=== PATIENT | female | born 1955 | race African-American/Black ===

== ENCOUNTER 2016-06-26 12:36 | Emergency (ER) | payer OTHER ==
[~2016-06-26] VITALS: Ht 185.4 cm; Wt 127.0 kg
[~2016-06-26 12:36] MED LIST: AMLO10TA80 PO; FLUT1DIS5 IH; FOLI1CAP6 PO; FURO40TA5 PO; Hydralazine Hcl PO; MONT4TAB8 PO; OMEP40CA34 PO; ONDA4TAB5 PO; TRAM50TA3 PO
[2016-06-26] MEDS ORDERED: ALBUTEROL (0.083%) 2.5MG/3ML NEB HHN STA (13:22)
[2016-06-26 14:12] LABS: BASOPHILS % 0.2 % (0.0-2.0); EOSINOPHILS % 1.3 % (0.0-5.0); HEMATOCRIT. 39.6 % (36.0-48.0); HEMOGLOBIN. 12.7 g/dL (12.0-16.0); LYMPHOCYTES % 20.8 % (20.0-50.0); MEAN CORPUSCULAR HEMOGLOBIN 27.8 pg (28.0-32.0); MEAN CORPUSCULAR HGB CONC 32.1 g/dL (31.0-37.0); MEAN CORPUSCULAR VOLUME 86.6 fL (81.0-99.0); MEAN PLATELET VOLUME 7.4 fl (7.4-10.4); MONOCYTES % 7.7 % (2.0-8.0); PLATELET 388 x1000/uL (130-400); RED BLOOD CELL COUNT 4.58 mill/uL (4.2-5.4); RED CELL DISTRIBUTION WIDTH 17.3 % (11.6-14.6); WHITE BLOOD COUNT 12.6 x1000/uL (4.5-11.0)
[2016-06-26 14:18] LABS: PROTHROMBIN TIME 10.2 sec
[2016-06-26 14:24] LABS: ANION GAP 10; CALCIUM 8.7 mg/dL (8.5-10.1); CARBON DIOXIDE 29 mEq/L (21-32); CHLORIDE 108 mEq/L (98-107); INDEX HEMOLYSI 1 (1-3); INDEX ICTERIC 1 (1-4); INDEX LIPEMIC 1 (1-3); UREA NITROGEN BLOOD 18 mg/dL (7-21)
[2016-06-26 14:27] LABS: NT PRO B-TYPE NATRIURETIC PEP 27 pg/mL (5-125); TROPONIN I < 0.02 ng/mL (0.00-0.04); eGFR 43 mL/min (>60)
[2016-06-26 15:00] LABS: *AMPHETAMINES SCREEN URINE NEGATIVE (NEGATIVE); *BARBITURATES SCREEN URINE NEGATIVE (NEGATIVE); *BENZODIAZEPINES SCREEN URINE NEGATIVE (NEGATIVE); *COCAINE SCREEN URINE NEGATIVE (NEGATIVE); CANNABINOID URINE SCREEN NEGATIVE (NEGATIVE); ECSTASY MDMA SCREEN URINE NEGATIVE (NEGATIVE); METHADONE URINE SCREEN NEGATIVE (NEGATIVE); OPIATES URINE SCREEN NEGATIVE (NEGATIVE); PHENCYCLIDINE URINE SCREEN NEGATIVE (NEGATIVE)
[2016-06-26 15:09] VITALS: BP 129/76
[2016-06-26] MEDS ORDERED: KETOROLAC 30MG/ML VIAL IV ONE (15:15)
== END 2016-06-26 15:18 | disposition home or self-care (01) ==
LOC: ER 14:34
DX: R09.1 Pleurisy (principal); J45.909 Unspecified asthma, uncomplicated; J44.9 Chronic obstructive pulmonary disease, unspecified; I10 Essential (primary) hypertension; I25.2 Old myocardial infarction; Z90.49 Acquired absence of other specified parts of digestive tract; Z79.899 Other long term (current) drug therapy; Z88.8 Allergy status to other drugs, medicaments and biological substances
CPT/HCPCS: 36415; 71010; 80048; 80305; 83880; 84484; 85025; 85610; 93005; 94640; 96374; 99285; J1885; J7611; Z7610

== ENCOUNTER 2016-09-08 12:32 | Inpatient (IN) | payer OTHER ==
[~2016-09-08] VITALS: Ht 185.4 cm; Wt 131.5 kg
[2016-09-08] MEDS ORDERED: FUROSEMIDE 40MG/4ML VIAL IV ONE (13:45)
[2016-09-08] MEDS ORDERED: ASPIRIN 81MG TABLET PO ONE (13:45)
[2016-09-08] MEDS ORDERED: NITROGLYCERIN OINT 1GM/INCH UDPKT TD ONE (13:45)
[2016-09-08 13:58] LABS: BASOPHILS % 0.2 % (0.0-2.0); HEMATOCRIT. 40.9 % (36.0-48.0); HEMOGLOBIN. 13.4 g/dL (12.0-16.0); LYMPHOCYTES % 17.2 % (20.0-50.0); MEAN CORPUSCULAR HEMOGLOBIN 28.7 pg (28.0-32.0); MEAN CORPUSCULAR VOLUME 87.5 fL (81.0-99.0); MEAN PLATELET VOLUME 8.2 fl (7.4-10.4); MONOCYTES % 6.7 % (2.0-8.0); NEUTROPHILS % 72.9 % (40.0-76.0); PLATELET 345 x1000/uL (130-400); RED BLOOD CELL COUNT 4.68 mill/uL (4.2-5.4); RED CELL DISTRIBUTION WIDTH 17.3 % (11.6-14.6)
[2016-09-08 14:13] LABS: CARBON DIOXIDE 30 mEq/L (21-32); CHLORIDE 106 mEq/L (98-107); TROPONIN I < 0.02 ng/mL (0.00-0.04)
[2016-09-08 14:25] LABS: D-DIMER 0.82 mg/L FEU (<0.50); PROTHROMBIN TIME 10.4 sec
[2016-09-08 20:00] VITALS: BP 149/95
[2016-09-08] MEDS: ALBUTEROL (0.083%) 2.5MG/3ML NEB HHN PRN (21:34)
[2016-09-08] MEDS ORDERED: HYDROMORPHONE HCL/PF 2MG/ML CPJ IV PRN (21:45)
[2016-09-08] MEDS ORDERED: HYDROCODONE/ACETAMINOPHEN 5/325MG TABLET PO PRN (21:45)
[2016-09-08] MEDS ORDERED: ZOLPIDEM TARTRATE 5MG TABLET PO PRN (21:45)
[2016-09-08] MEDS: METHYLPREDNISOLONE SOD SUCC 125 MG/2 ML VIAL IV SCH (22:45)
[2016-09-08 23:02] VITALS: BP 145/95
[2016-09-08] MEDS ORDERED: TRAMADOL 50MG TABLET PO PRN (23:30)
[2016-09-08] MEDS ORDERED: PROMETHAZINE/DEXTROMETHORPHAN 6.25-15MG/5ML BOTTLE 120ML PO SCH (23:30)
[2016-09-08] MEDS ORDERED: CLONIDINE 0.2MG TABLET PO PRN (23:30)
[2016-09-08] MEDS ORDERED: CLON0.2T PO (23:37)
[2016-09-08] MEDS ORDERED: HYDR-4133 PO (23:37)
[2016-09-08] MEDS ORDERED: ALBU18HF2 IH (23:37)
[2016-09-08] MEDS ORDERED: MONT10TA24 PO (23:37)
[2016-09-08] MEDS ORDERED: D-ME118S13 PO (23:37)
[2016-09-08] MEDS ORDERED: PRED10TA23 PO (23:37)
[2016-09-08] MEDS ORDERED: AMLO10TA80 PO (23:37)
[2016-09-08] MEDS ORDERED: NITR4.1S2 TL (23:37)
[2016-09-08] MEDS ORDERED: TRAM50TA3 PO (23:37)
[2016-09-08] MEDS ORDERED: BENZ100C86 PO (23:37)
[2016-09-08] MEDS ORDERED: METO25TA6 PO (23:37)
[2016-09-08] MEDS ORDERED: MOME13HF INH (23:37)
[2016-09-09] VITALS: BP 127/88
[2016-09-09] MEDS: ALBUTEROL (0.083%) 2.5MG/3ML NEB HHN PRN ×6 (00:30→21:07)
[2016-09-09] MEDS ORDERED: CODE118S2 PO (01:22)
[2016-09-09] MEDS ORDERED: CODEINE PO PRN (01:30)
[2016-09-09] MEDS ORDERED: ZOLPIDEM TARTRATE 5MG TABLET PO PRN (01:30)
[2016-09-09] MEDS ORDERED: PROMETHAZINE HCL PO PRN (01:30)
[2016-09-09] MEDS ORDERED: NON FORMULARY PATIENT HOME MED EA XX SCH (01:45)
[2016-09-09] MEDS ORDERED: PROMETHAZINE 5 ML/6.25 MG 118ML LIQ PO PRN (02:00)
[2016-09-09 04:00] VITALS: BP 130/85
[2016-09-09 06:35] LABS: BASOPHILS % 0.2 % (0.0-2.0); HEMATOCRIT. 40.1 % (36.0-48.0); HEMOGLOBIN. 13.3 g/dL (12.0-16.0); LYMPHOCYTES % 9.9 % (20.0-50.0); MEAN CORPUSCULAR HEMOGLOBIN 29.1 pg (28.0-32.0); MEAN CORPUSCULAR VOLUME 87.8 fL (81.0-99.0); MEAN PLATELET VOLUME 7.7 fl (7.4-10.4); MONOCYTES % 0.7 % (2.0-8.0); NEUTROPHILS % 89.2 % (40.0-76.0); PLATELET 343 x1000/uL (130-400); RED BLOOD CELL COUNT 4.56 mill/uL (4.2-5.4); RED CELL DISTRIBUTION WIDTH 17.3 % (11.6-14.6)
[2016-09-09] MEDS: OMEPRAZOLE 20MG CAPSULE EXTENDED RELEASE PO SCH (06:36)
[2016-09-09 07:01] LABS: CHLORIDE 103 mEq/L (98-107)
[2016-09-09 07:09] LABS: CARBON DIOXIDE 27 mEq/L (21-32); TROPONIN I < 0.02 ng/mL (0.00-0.04)
[2016-09-09 08:00] VITALS: BP 134/82
[2016-09-09] MEDS ORDERED: FUROSEMIDE 40MG TABLET PO SCH (09:00)
[2016-09-09] MEDS: FUROSEMIDE 40MG/4ML VIAL IVP SCH ×2 (09:44→18:00)
[2016-09-09] MEDS: METHYLPREDNISOLONE SOD SUCC 125 MG/2 ML VIAL IV SCH ×2 (09:44→18:00)
[2016-09-09] MEDS: METOPROLOL TARTRATE 25MG TABLET PO SCH ×2 (09:46→21:00)
[2016-09-09] MEDS: AMLODIPINE 10MG TABLET PO SCH ×2 (09:46→22:31)
[2016-09-09] MEDS: ENOXAPARIN 30MG/0.3ML SYR SUBCUT SCH ×2 (09:47→22:39)
[2016-09-09 12:00] VITALS: BP 135/88
[2016-09-09 16:00] VITALS: BP 129/86
[2016-09-09] MEDS: GUAIFENESIN 200MG/10ML SUGAR FREE UDC PO PRN ×2 (18:00→20:39)
[2016-09-09 20:00] VITALS: BP 122/83
[2016-09-10] VITALS: BP 113/68
[2016-09-10] MEDS: ALBUTEROL (0.083%) 2.5MG/3ML NEB HHN PRN ×3 (00:24→09:59)
[2016-09-10 04:00] VITALS: BP 108/65
[2016-09-10] MEDS: OMEPRAZOLE 20MG CAPSULE EXTENDED RELEASE PO SCH (06:58)
[2016-09-10 08:00] VITALS: BP 116/88
[2016-09-10] MEDS: AMLODIPINE 10MG TABLET PO SCH (09:35)
[2016-09-10] MEDS: METOPROLOL TARTRATE 25MG TABLET PO SCH (09:35)
[2016-09-10] MEDS: METHYLPREDNISOLONE SOD SUCC 125 MG/2 ML VIAL IV SCH (09:36)
[2016-09-10] MEDS: FUROSEMIDE 40MG/4ML VIAL IVP SCH (09:36)
[2016-09-10] MEDS: ENOXAPARIN 30MG/0.3ML SYR SUBCUT SCH (09:37)
[2016-09-10 11:45] VITALS: BP 125/74
== END 2016-09-10 13:00 | disposition home or self-care (01) | DRG 194 ==
LOC: ER 13:30 → 6WST 13:50
PROVIDERS: ADMIT Internal Medicine; ATTEND Internal Medicine
DX: I11.0 Hypertensive heart disease with heart failure (principal); E88.81 Metabolic syndrome and other insulin resistance; J98.01 Acute bronchospasm; E11.9 Type 2 diabetes mellitus without complications; G47.33 Obstructive sleep apnea (adult) (pediatric); E66.9 Obesity, unspecified; E78.5 Hyperlipidemia, unspecified; G89.4 Chronic pain syndrome; I25.10 Atherosclerotic heart disease of native coronary artery without angina pectoris; I50.9 Heart failure, unspecified; J44.9 Chronic obstructive pulmonary disease, unspecified; K21.9 Gastro-esophageal reflux disease without esophagitis; M19.90 Unspecified osteoarthritis, unspecified site; N28.9 Disorder of kidney and ureter, unspecified; Z88.8 Allergy status to other drugs, medicaments and biological substances; Z90.49 Acquired absence of other specified parts of digestive tract; Z68.38 Body mass index [BMI] 38.0-38.9, adult
CPT/HCPCS: 36415; 71010; 80048; 80053; 83880; 84484; 85025; 85379; 85610; 93005; 94640; 96374; 99285; J1650; J1940; J2930; J7611; Q0169

== ENCOUNTER 2017-03-08 14:37 | Emergency (ER) | payer OTHER ==
[~2017-03-08] VITALS: Ht 188 cm; Wt 123.0 kg
[~2017-03-08 14:37] MED LIST changes: +ALBU18HF2 IH; +BENZ100C86 PO; +CLON0.2T PO; +CODE118S2 PO; +D-ME118S13 PO; +HYDR-4133 PO; +METO25TA6 PO; +MOME13HF INH; +MONT10TA24 PO; -MONT4TAB8 PO; +MONT4TAB9 PO; +NITR4.1S2 TL; +PRED10TA23 PO
[2017-03-08] MEDS ORDERED: MORPHINE SULFATE 4 MG/ML CPJ (NOT FOR IM USE) IV ONE (18:00)
[2017-03-08] MEDS ORDERED: KETOROLAC 60MG/2ML VIAL IM ONE (21:00)
[2017-03-08 23:03] VITALS: BP 110/66
== END 2017-03-08 23:09 | disposition home or self-care (01) ==
LOC: ER 15:31
DX: S80.01XA Contusion of right knee, initial encounter (principal); J44.9 Chronic obstructive pulmonary disease, unspecified; I11.0 Hypertensive heart disease with heart failure; I25.10 Atherosclerotic heart disease of native coronary artery without angina pectoris; I50.9 Heart failure, unspecified; K21.9 Gastro-esophageal reflux disease without esophagitis; Z90.49 Acquired absence of other specified parts of digestive tract; Z96.659 Presence of unspecified artificial knee joint; Z98.890 Other specified postprocedural states; Z88.8 Allergy status to other drugs, medicaments and biological substances; W18.39XA Other fall on same level, initial encounter; Y93.89 Activity, other specified; Y92.89 Other specified places as the place of occurrence of the external cause; Y99.8 Other external cause status
CPT/HCPCS: 73562; 96372; 99284; J1885; L1830; Z7610

== ENCOUNTER 2020-02-29 09:39 | Emergency (ER) | payer MEDICARE, MEDICAID ==
[~2020-02-29] VITALS: Ht 190.5 cm; Wt 122.0 kg
[~2020-02-29 09:39] MED LIST changes: -FOLI1CAP6 PO; -MOME13HF INH; -MONT10TA24 PO; +MONT10TA26 PO; -OMEP40CA34 PO; -PRED10TA23 PO
[2020-02-29] MEDS ORDERED: ACETAMINOPHEN 325MG TABLET PO ONE (10:45)
[2020-02-29 12:01] VITALS: BP 158/98
== END 2020-02-29 12:02 | disposition home or self-care (01) ==
LOC: ER 09:43
DX: S16.1XXA Strain of muscle, fascia and tendon at neck level, initial encounter (principal); J44.1 Chronic obstructive pulmonary disease with (acute) exacerbation; K21.9 Gastro-esophageal reflux disease without esophagitis; J45.909 Unspecified asthma, uncomplicated; I11.0 Hypertensive heart disease with heart failure; I50.9 Heart failure, unspecified; Z88.8 Allergy status to other drugs, medicaments and biological substances; Z79.899 Other long term (current) drug therapy; Z90.49 Acquired absence of other specified parts of digestive tract; V49.9XXA Car occupant (driver) (passenger) injured in unspecified traffic accident, initial encounter; Y93.89 Activity, other specified; Y92.89 Other specified places as the place of occurrence of the external cause; Y99.8 Other external cause status
CPT/HCPCS: 72040; 73030; 73562; 99284

== ENCOUNTER 2020-09-20 14:38 | Emergency (ER) | payer MEDICARE, MEDICAID ==
[~2020-09-20] VITALS: Ht 172.7 cm; Wt 112.0 kg
[~2020-09-20 14:38] MED LIST changes: -MONT10TA26 PO; +MONT10TA32 PO
[2020-09-20] MEDS ORDERED: ACETAMINOPHEN 325MG TABLET PO ONE (15:00)
[2020-09-20] MEDS ORDERED: TRAMADOL 50MG TABLET PO ONE (15:00)
[2020-09-20] MEDS ORDERED: TRAM50TA3 MT (16:42)
[2020-09-20] MEDS ORDERED: TOPUD MT (16:42)
[2020-09-20 16:56] VITALS: BP 165/82
== END 2020-09-20 16:57 | disposition home or self-care (01) ==
LOC: ER 14:38
DX: S39.012A Strain of muscle, fascia and tendon of lower back, initial encounter (principal); M79.18 Myalgia, other site; V49.40XA Driver injured in collision with unspecified motor vehicles in traffic accident, initial encounter; Y93.89 Activity, other specified; Y92.410 Unspecified street and highway as the place of occurrence of the external cause; J45.909 Unspecified asthma, uncomplicated; I25.10 Atherosclerotic heart disease of native coronary artery without angina pectoris; K21.9 Gastro-esophageal reflux disease without esophagitis; J44.9 Chronic obstructive pulmonary disease, unspecified; I12.9 Hypertensive chronic kidney disease with stage 1 through stage 4 chronic kidney disease, or unspecified chronic kidney disease; N18.9 Chronic kidney disease, unspecified; Z88.8 Allergy status to other drugs, medicaments and biological substances; Z90.49 Acquired absence of other specified parts of digestive tract; Z96.659 Presence of unspecified artificial knee joint
CPT/HCPCS: 72100; 73562; 93005; 99284

== ENCOUNTER 2021-04-16 05:05 | Emergency (ER) | payer MEDICARE, MEDICAID ==
[~2021-04-16] VITALS: Ht 188 cm; Wt 129.0 kg
[~2021-04-16 05:05] MED LIST changes: +ASPI-1406 PO; +ATOR10TA69 PO; +BENR30SY SQ; -BENZ100C86 PO; +CHOL400D7 PO; -CLON0.2T PO; -D-ME118S13 PO; +DILT120C11 PO; +DOCU-150 PO; +FESO4TAB PO; -Hydralazine Hcl PO; +IPRA3AMP31 IH; +MELA10CA PO; -METO25TA6 PO; -MONT10TA32 PO; -MONT4TAB9 PO; +OMEG100017 PO; +OMEP40CA20 PO; +SUMA100T16 PO; +UMEC62.5 IH; +VITA-261 PO
[2021-04-16 05:20] VITALS: BP 144/88
[2021-04-16 08:56] LABS: HEMATOCRIT. 47.8 % (36.0-48.0); HEMOGLOBIN. 15.8 g/dL (12.0-16.0); LYMPHOCYTES % 29.4 % (20.0-50.0); MEAN CORPUSCULAR HEMOGLOBIN 31.3 pg (28.0-32.0); MEAN CORPUSCULAR VOLUME 94.5 fL (81.0-99.0); MEAN PLATELET VOLUME 7.6 fl (7.4-10.4); MONOCYTES % 7.8 % (2.0-8.0); NEUTROPHILS % 61.8 % (40.0-76.0); PLATELET 326 x1000/uL (130-400); RED BLOOD CELL COUNT 5.06 mill/uL (4.2-5.4); RED CELL DISTRIBUTION WIDTH 14.6 % (11.6-14.6)
[2021-04-16 09:03] LABS: CHLORIDE 108 mEq/L (98-107)
[2021-04-16 11:46] LABS: CLARITY URINE CLOUDY (CLEAR); COLOR URINE DK YELLOW (YELLOW); KETONES URINE NEGATIVE (NEGATIVE); LEUKOCYTE ESTERASE URINE 1+ (NEGATIVE); NITRITE URINE NEGATIVE (NEGATIVE); OCCULT BLOOD URINE 3+ (NEGATIVE); PROTEIN URINE 1+ (NEGATIVE); SPECIFIC GRAVITY URINE 1.026 (1.005-1.030); UROBILINOGEN URINE 0.2 E.U./dL (0.2-1.0)
[2021-04-16] MEDS ORDERED: CEPH500C2 MT (12:22)
== END 2021-04-16 12:25 | disposition left against medical advice (07) ==
LOC: ER 05:05
DX: N93.9 Abnormal uterine and vaginal bleeding, unspecified (principal); N39.0 Urinary tract infection, site not specified; K21.9 Gastro-esophageal reflux disease without esophagitis; I13.0 Hypertensive heart and chronic kidney disease with heart failure and stage 1 through stage 4 chronic kidney disease, or unspecified chronic kidney disease; N18.9 Chronic kidney disease, unspecified; I50.9 Heart failure, unspecified; I25.10 Atherosclerotic heart disease of native coronary artery without angina pectoris; J45.909 Unspecified asthma, uncomplicated; Z88.8 Allergy status to other drugs, medicaments and biological substances; Z98.890 Other specified postprocedural states; Z90.49 Acquired absence of other specified parts of digestive tract; Z96.659 Presence of unspecified artificial knee joint
CPT/HCPCS: 36415; 80053; 81003; 85025; 99283

== ENCOUNTER 2022-03-17 04:40 | Emergency (ER) | payer MEDICARE, MEDICAID ==
[~2022-03-17] VITALS: Ht 188 cm; Wt 100.0 kg
[~2022-03-17 04:40] MED LIST changes: +CEPH500C2 MT
[2022-03-17] MEDS ORDERED: DIAZEPAM 2 MG TABLET PO ONE (07:15)
[2022-03-17] MEDS ORDERED: OXYCODONE HCL/ACETAMINOPHEN 5/325MG TABLET PO ONE (07:15)
[2022-03-17] MEDS ORDERED: CYCL5TAB MT (08:55)
[2022-03-17] MEDS ORDERED: LIDO700A15 TP (08:55)
[2022-03-17 09:18] VITALS: BP 133/88
== END 2022-03-17 09:25 | disposition home or self-care (01) ==
LOC: ER 04:47
DX: M54.50 Low back pain, unspecified (principal); I50.9 Heart failure, unspecified; E11.9 Type 2 diabetes mellitus without complications; J45.909 Unspecified asthma, uncomplicated; Z79.899 Other long term (current) drug therapy
CPT/HCPCS: 72100; 99283

== ENCOUNTER 2024-11-22 17:19 | Inpatient (IN) | payer MEDICARE, MEDICAID ==
[~2024-11-22] VITALS: Ht 188 cm; Wt 138.0 kg
[~2024-11-22 17:19] MED LIST changes: +CYCL5TAB3 MT; -DOCU-150 PO; +DOCU-422 PO; +HYDR-2988 PO; -HYDR-4133 PO; +LIDO-53 TP
[2024-11-22 20:17] LABS: BASOPHILS % 1.2 % (0.0-2.0); EOSINOPHILS % 0.0 % (0.0-5.0); HEMATOCRIT. 47.3 % (36.0-48.0); HEMOGLOBIN. 15.7 g/dL (12.0-16.0); LYMPHOCYTES % 28.2 % (20.0-50.0); MEAN PLATELET VOLUME 7.7 fl (7.4-10.4); MONOCYTES % 10.7 % (2.0-8.0); NEUTROPHILS % 59.9 % (40.0-76.0); PLATELET 276 x1000/uL (130-400); RED BLOOD CELL COUNT 4.95 mill/uL (4.2-5.4); RED CELL DISTRIBUTION WIDTH 15.7 % (11.6-14.6)
[2024-11-22 20:31] LABS: CREATININE 1.3 mg/dL (0.6-1.0); UREA NITROGEN BLOOD 15 mg/dL (9-23)
[2024-11-22 20:32] LABS: TROPONIN I HIGH SENSITIVITY < 4 ng/L (3.0-34)
[2024-11-22] MEDS ORDERED: POTASSIUM CHLORIDE 20MEQ TABLET SR PO PRN (21:15)
[2024-11-22] MEDS ORDERED: DOCUSATE SODIUM 100MG CAPSULE PO PRN (21:15)
[2024-11-22] MEDS ORDERED: MAGNESIUM/ALUMINUM HYDROXIDE/SIMETHICONE 30ML UDC PO PRN (21:15)
[2024-11-22] MEDS ORDERED: CLONIDINE 0.1MG TABLET PO PRN (21:15)
[2024-11-22] MEDS ORDERED: HYDROCODONE/ACETAMINOPHEN 5/325MG TABLET PO PRN (21:15)
[2024-11-22] MEDS ORDERED: IPRATROPIUM/ALBUTEROL 0.5-3(2.5)MG/3ML NEB HHN PRN (21:15)
[2024-11-22] MEDS ORDERED: ONDANSETRON HCL 4MG/2ML INJ IV PRN (21:15)
[2024-11-22] MEDS ORDERED: NALOXONE HCL 0.4MG/ML VIAL IV PRN (21:30)
[2024-11-23] VITALS (8 sets, daily range): BP systolic 102–143; BP diastolic 54–84; PULSE 77–92; RESP 16–20; TEMP 35.7–36.8; O2SAT 97–100
[2024-11-23] MEDS ORDERED: FURO80TA3 PO (00:59)
[2024-11-23] MEDS ORDERED: TRELEGY (01:09)
[2024-11-23] MEDS ORDERED: DAPA10TA PO (01:09)
[2024-11-23] MEDS ORDERED: NITR0.4T49 SL (01:09)
[2024-11-23] MEDS ORDERED: IOHEXOL-350 100 ML BOTTLE ONE (01:10)
[2024-11-23] MEDS ORDERED: MONT-39 PO (01:10)
[2024-11-23] MEDS: BENZONATATE 100MG CAPSULE PO PRN (02:36)
[2024-11-23] MEDS: AMLODIPINE 10MG TABLET PO SCH (02:37)
[2024-11-23] MEDS: ENOXAPARIN 40MG/0.4ML SYR SUBCUT SCH (02:37)
[2024-11-23 08:44] LABS: BASOPHILS % 0.3 % (0.0-2.0); EOSINOPHILS % 0.0 % (0.0-5.0); HEMATOCRIT. 45.8 % (36.0-48.0); HEMOGLOBIN. 15.1 g/dL (12.0-16.0); LYMPHOCYTES % 33.5 % (20.0-50.0); MEAN PLATELET VOLUME 8.2 fl (7.4-10.4); MONOCYTES % 10.1 % (2.0-8.0); NEUTROPHILS % 56.1 % (40.0-76.0); PLATELET 276 x1000/uL (130-400); RED BLOOD CELL COUNT 4.86 mill/uL (4.2-5.4); RED CELL DISTRIBUTION WIDTH 15.5 % (11.6-14.6)
[2024-11-23 08:58] LABS: TROPONIN I HIGH SENSITIVITY < 4 ng/L (3.0-34)
[2024-11-23 09:01] LABS: CREATININE 1.3 mg/dL (0.6-1.0)
[2024-11-23 09:02] LABS: UREA NITROGEN BLOOD 14 mg/dL (9-23)
[2024-11-23 09:04] LABS: PHOSPHORUS 2.9 mg/dL (2.5-4.9)
[2024-11-23] MEDS ORDERED: BENRALIZUMAB 30 MG SQ SCH (11:00)
[2024-11-23] MEDS ORDERED: MEDICATION NOT ON FORMULARY EA (Dapagliflozin Propanediol (Farxiga) 1 TAB) PO SCH (11:00)
[2024-11-23] MEDS ORDERED: MEDICATION NOT ON FORMULARY EA (Cyclobenzaprine Hcl 1 TAB) MT PRN (11:00)
[2024-11-23] MEDS ORDERED: LIDOCAINE 5% PATCH TOP SCH (11:00)
[2024-11-23] MEDS ORDERED: SUMATRIPTAN SUCCINATE 25MG TABLET PO PRN (12:45)
[2024-11-23] MEDS: FUROSEMIDE 40MG TABLET PO SCH (13:36)
[2024-11-23] MEDS: ASPIRIN 81MG EC TABLET PO SCH (13:36)
[2024-11-23] MEDS: DILTIAZEM HCL 120MG CAPSULE ER 24HR PO SCH (13:36)
[2024-11-23] MEDS: MONTELUKAST SODIUM 10MG TABLET PO SCH (13:36)
[2024-11-23] MEDS: METHYLPREDNISOLONE SOD SUCC 40MG/ML (ACT-O-VIAL) IV SCH (18:47)
[2024-11-23] MEDS: ATORVASTATIN CALCIUM 10MG TABLET PO SCH (20:15)
[2024-11-23] MEDS: IPRATROPIUM/ALBUTEROL 0.5-3(2.5)MG/3ML NEB HHN SCH (20:32)
[2024-11-24] VITALS (10 sets, daily range): BP systolic 111–147; BP diastolic 64–81; PULSE 75–118; RESP 13–20; TEMP 36.4–36.8; O2SAT 94–100
[2024-11-24 06:57] LABS: BASOPHILS % 0.1 % (0.0-2.0); EOSINOPHILS % 0.0 % (0.0-5.0); HEMATOCRIT. 48.7 % (36.0-48.0); HEMOGLOBIN. 16.1 g/dL (12.0-16.0); LYMPHOCYTES % 17.1 % (20.0-50.0); MEAN PLATELET VOLUME 8.2 fl (7.4-10.4); MONOCYTES % 0.8 % (2.0-8.0); NEUTROPHILS % 82.0 % (40.0-76.0); PLATELET 309 x1000/uL (130-400); RED BLOOD CELL COUNT 5.07 mill/uL (4.2-5.4); RED CELL DISTRIBUTION WIDTH 15.4 % (11.6-14.6)
[2024-11-24 07:16] LABS: CREATININE 1.4 mg/dL (0.6-1.0); UREA NITROGEN BLOOD 15 mg/dL (9-23)
[2024-11-24 07:18] LABS: PHOSPHORUS 2.4 mg/dL (2.5-4.9)
[2024-11-24] MEDS: DILTIAZEM HCL 5MG/ML 5ML VIAL IV NR (08:21)
[2024-11-24] MEDS: ENOXAPARIN 40MG/0.4ML SYR SUBCUT SCH (10:03)
[2024-11-24] MEDS ORDERED: DICL100G58 TP (11:47)
[2024-11-24] MEDS ORDERED: DILT-26 PO (11:47)
[2024-11-24] MEDS ORDERED: FLUT1AER IH (11:47)
[2024-11-24] MEDS ORDERED: FLUT16SP15 (11:47)
[2024-11-24] MEDS ORDERED: CHOL200059 PO (11:47)
[2024-11-24] MEDS ORDERED: MOME17SP11 (11:47)
[2024-11-24] MEDS ORDERED: NITR0.4T49 SL (11:47)
[2024-11-24] MEDS ORDERED: OMEP1CAP32 PO (11:47)
[2024-11-24] MEDS ORDERED: TRELEGY INH (11:47)
[2024-11-24] MEDS ORDERED: SOLI5TAB7 PO (11:47)
[2024-11-24] MEDS ORDERED: PERF3DRO EACHEYE (11:47)
[2024-11-24] MEDS ORDERED: ALBU18HF2 PO (11:47)
[2024-11-24] MEDS ORDERED: METF-414 PO (11:47)
[2024-11-24] MEDS ORDERED: LOSA50TA41 PO (11:47)
[2024-11-24] MEDS ORDERED: BISA-183 PR (11:47)
[2024-11-24] MEDS: SODIUM PHOSPHATE 15 MMOL in DEXT 5% WATER 245 ML IV NR (12:07)
[2024-11-24] MEDS: ENOXAPARIN 100MG/ML SYR SUBCUT SCH (15:00)
[2024-11-24] MEDS ORDERED: REGADENOSON 0.4 MG/5 ML IV NR (15:00)
[2024-11-24 18:19] LABS: INR 1.1
[2024-11-24] MEDS: ENOXAPARIN 150MG/ML SYR SUBCUT SCH (20:58)
[2024-11-24] MEDS: HYDRALAZINE HCL 25MG TABLET PO SCH (21:09)
[2024-11-25] VITALS (10 sets, daily range): BP systolic 116–148; BP diastolic 55–90; PULSE 72–90; RESP 17–20; TEMP 36.1–36.6; O2SAT 95–100
[2024-11-25] MEDS ORDERED: REGADENOSON 0.4 MG/5 ML IV ONE (07:41)
[2024-11-25] MEDS: ACETAMINOPHEN 325MG TABLET PO PRN (11:26)
[2024-11-25] MEDS: FARXIGA 10MG TABLET PO SCH (11:31)
[2024-11-25] MEDS: AMLODIPINE 10MG TABLET PO SCH (13:33)
[2024-11-25 20:48] LABS: BASOPHILS % 1.0 % (0.0-2.0); EOSINOPHILS % 0.0 % (0.0-5.0); HEMATOCRIT. 49.7 % (36.0-48.0); HEMOGLOBIN. 16.4 g/dL (12.0-16.0); LYMPHOCYTES % 7.4 % (20.0-50.0); MEAN PLATELET VOLUME 8.9 fl (7.4-10.4); MONOCYTES % 4.1 % (2.0-8.0); NEUTROPHILS % 87.5 % (40.0-76.0); PLATELET 304 x1000/uL (130-400); RED BLOOD CELL COUNT 5.23 mill/uL (4.2-5.4); RED CELL DISTRIBUTION WIDTH 15.5 % (11.6-14.6)
[2024-11-25 21:01] LABS: CREATININE 1.6 mg/dL (0.6-1.0); UREA NITROGEN BLOOD 23.0 mg/dL (9-23)
[2024-11-25] MEDS: APIXABAN 5 MG TABLET PO SCH (21:06)
[2024-11-26] VITALS (8 sets, daily range): BP systolic 103–154; BP diastolic 60–88; PULSE 70–93; RESP 16–20; TEMP 36.2–36.6; O2SAT 96–100
[2024-11-26 07:28] LABS: BASOPHILS % 0.3 % (0.0-2.0); EOSINOPHILS % 0.0 % (0.0-5.0); HEMATOCRIT. 47.9 % (36.0-48.0); HEMOGLOBIN. 15.8 g/dL (12.0-16.0); LYMPHOCYTES % 8.5 % (20.0-50.0); MEAN PLATELET VOLUME 8.5 fl (7.4-10.4); MONOCYTES % 3.6 % (2.0-8.0); NEUTROPHILS % 87.6 % (40.0-76.0); PLATELET 286 x1000/uL (130-400); RED BLOOD CELL COUNT 5.05 mill/uL (4.2-5.4); RED CELL DISTRIBUTION WIDTH 15.3 % (11.6-14.6)
[2024-11-26 07:49] LABS: CREATININE 1.5 mg/dL (0.6-1.0)
[2024-11-26 07:50] LABS: UREA NITROGEN BLOOD 25 mg/dL (9-23)
[2024-11-26] MEDS: CLONIDINE 0.1MG TABLET PO SCH (08:17)
[2024-11-26] MEDS ORDERED: FURO40TA5 PO (12:59)
[2024-11-26] MEDS ORDERED: DILT120C88 PO (12:59)
[2024-11-26] MEDS ORDERED: CLON0.1T PO (12:59)
[2024-11-26] MEDS ORDERED: BENZ100C86 PO (12:59)
[2024-11-26] MEDS ORDERED: APIX5TAB PO (12:59)
[2024-11-27] MEDS ORDERED: FUROSEMIDE 40MG TABLET PO SCH (09:00)
== END 2024-11-26 14:31 | disposition home or self-care (01) | DRG 291 ==
LOC: ER 17:19 → 6WST 20:51 → EDBEDREQ 22:20 → EDBEDREQTM 22:20 → ENRESERV 22:45
PROVIDERS: ADMIT Family Medicine Adult Medicine; ATTEND Family Medicine Adult Medicine
PROC: 4A02XM4 Measurement of Cardiac Total Activity, External Approach (ICD-10-PCS; principal; 2024-11-25)
PROC: 3E073KZ Introduction of Other Diagnostic Substance into Coronary Artery, Percutaneous Approach (ICD-10-PCS; 2024-11-25)
DX: I13.0 Hypertensive heart and chronic kidney disease with heart failure and stage 1 through stage 4 chronic kidney disease, or unspecified chronic kidney disease (principal); J96.00 Acute respiratory failure, unspecified whether with hypoxia or hypercapnia; J44.1 Chronic obstructive pulmonary disease with (acute) exacerbation; E11.22 Type 2 diabetes mellitus with diabetic chronic kidney disease; N18.30 Chronic kidney disease, stage 3 unspecified; I50.9 Heart failure, unspecified; E66.9 Obesity, unspecified; Z68.39 Body mass index [BMI] 39.0-39.9, adult; E78.5 Hyperlipidemia, unspecified; I48.0 Paroxysmal atrial fibrillation; Z79.899 Other long term (current) drug therapy; Z79.82 Long term (current) use of aspirin; Z79.01 Long term (current) use of anticoagulants; Z96.659 Presence of unspecified artificial knee joint
CPT/HCPCS: 36415; 71045; 71275; 78452; 80048; 83735; 83880; 84100; 84484; 85025; 93005; 93306; 93970; 94070; 94640; 94664; 98960; 99285; A9500; J1650; J2785; J2919; J3490; J7060; Q9967